=== PATIENT | female | born 1995 | race Hispanic/Latino ===

== ENCOUNTER 2021-03-10 19:31 | Emergency (ER) | payer OTHER ==
[2021-03-10 19:44] VITALS: BP 122/72
[2021-03-10 21:01] VITALS: BP 117/69
== END 2021-03-10 21:07 | disposition home or self-care (01) ==
LOC: EDH 19:31
DX: O98.519 Other viral diseases complicating pregnancy, unspecified trimester (principal); B34.9 Viral infection, unspecified; Z20.822 Contact with and (suspected) exposure to COVID-19; Z3A.00 Weeks of gestation of pregnancy not specified
CPT/HCPCS: 36415; 84702; 87635; 87804 ×2; 99283; C9803